=== PATIENT | female | born 1965 | race Caucasian/White ===

== ENCOUNTER 2019-04-29 11:37 | Observation (INO) | payer OTHER ==
[~2019-04-29 11:37] MED LIST: SEVOFLURANE 15 MIN
[2019-04-29 12:38] LABS: ADD MAN DIFF? NO
[2019-04-29] MEDS: LACTATED RINGER'S 1,000 ML IV (12:44)
[2019-04-29 12:45] LABS: BASOPHILS % 0.6 % (0.0-2.0); EOSINOPHILS # 0.2 10^3/ul (0.0-0.5); EOSINOPHILS % 3.6 % (0.0-7.0); HEMOGLOBIN 13.4 g/dl (12.0-16.0); LYMPHOCYTES # 2.1 10^3/ul (0.8-2.9); LYMPHOCYTES % 31.9 % (15.0-51.0); MEAN CORPUSCULAR HEMOGLOBIN 29.5 pg (29.0-33.0); MEAN CORPUSCULAR HGB CONC 33.5 g/dl (32.0-37.0); MEAN CORPUSCULAR VOLUME 87.9 fl (82.0-101.0); MEAN PLATELET VOLUME 9.3 fl (7.4-10.4); MONOCYTE # 0.6 10^3/ul (0.3-0.9); MONOCYTES % 8.4 % (0.0-11.0); NEUTROPHIL # 3.7 10^3/ul (1.6-7.5); NEUTROPHILS % 55.1 % (39.0-77.0); PLATELET COUNT 261 10^3/UL (140-415); RED BLOOD COUNT 4.55 10^6/ul (4.20-5.40); RED CELL DISTRIBUTION WIDTH 11.7 % (11.5-14.5)
[2019-04-29 12:45] LABS: WHITE BLOOD COUNT 6.7 10^3/ul (4.8-10.8)
[2019-04-29 13:02] LABS: ALANINE AMINOTRANSFERASE 21 IU/L (13-69); ALBUMIN 4.2 g/dl (3.3-4.9); ALBUMIN/GLOBULIN RATIO 1.23; ALKALINE PHOSPHATASE 87 IU/L (42-121); ANION GAP 6 (5-13); ASPARTATE AMINO TRANSFERASE 19 IU/L (15-46); BILIRUBIN,INDIRECT 0.4 mg/dl (0-1.1); BILIRUBIN,TOTAL 0.4 mg/dl (0.2-1.3); BLOOD UREA NITROGEN 8 mg/dl (7-20); CALCIUM 9.3 mg/dl (8.4-10.2); CARBON DIOXIDE 28 mmol/L (21-31); CHLORIDE 108 mmol/L (97-110); Estimated GFR > 60 mL/min (>60); GLUCOSE 79 mg/dl (70-220); POTASSIUM 4.1 mmol/L (3.5-5.1); SODIUM 142 mmol/L (135-144); TOTAL PROTEIN 7.6 g/dl (6.1-8.1)
[2019-04-29 13:04] LABS: CREATININE 0.34 mg/dl (0.44-1.00)
[2019-04-29 13:05] LABS: INR 0.94; PARTIAL THROMBOPLASTIN TIME 27.5 Sec (23.0-35.0); PROTIME 12.7 Sec (11.9-14.9)
[2019-04-29] MEDS ORDERED: MIDAZOLAM 1 MG/ML 2 ML INJ (14:52)
[2019-04-29] MEDS ORDERED: ROCURONIUM 50 MG INJ (15:00)
[2019-04-29] MEDS ORDERED: SUCCINYLCHOLINE CHLORIDE 100 MG/5 ML SYG IV (15:00)
[2019-04-29] MEDS ORDERED: DEXAMETHASONE 4 MG/ML 5 ML INJ (15:00)
[2019-04-29] MEDS ORDERED: PROPOFOL 20 ML (15:00)
[2019-04-29] MEDS ORDERED: LIDOCAINE 2% (SDV) 5 ML INJ (15:00)
[2019-04-29] MEDS ORDERED: CEFAZOLIN 1 GM INJ (15:00)
[2019-04-29] MEDS ORDERED: FAMOTIDINE 20 MG INJ (15:00)
[2019-04-29] MEDS ORDERED: ONDANSETRON 4 MG INJ (15:00)
[2019-04-29] MEDS: LIDOCAINE 1.5%/EPI MPF (SDV) 30 ML VIAL (15:53)
[2019-04-29] MEDS: BUPIVACAINE 0.5%/EPI (SDV) 30 ML INJ (15:53)
[2019-04-29] MEDS: GELATIN SIZE 100 SPONGE (15:54)
[2019-04-29] MEDS: THROMBIN 5000 UNIT VIAL ×2 (15:55→16:57)
[2019-04-29] MEDS ORDERED: GELATIN SIZE 100 SPONGE (16:15)
[2019-04-29] MEDS: POLYMYXIN/BACITRACIN 1L IRRIG (16:58)
[2019-04-29] MEDS: METHYLPREDNISOLONE ACET 80 MG/ML 1 ML (16:58)
[2019-04-29] MEDS ORDERED: GLYCOPYRROLATE 0.4 MG INJ (17:00)
[2019-04-29] MEDS ORDERED: NEOSTIGMINE 3 MG/3 ML SYRINGE (17:00)
[2019-04-29] MEDS ORDERED: ACETAMINOPHEN/CODEINE #3 TAB PO (17:30)
[2019-04-29] MEDS ORDERED: BISACODYL 10 MG SUPP PR (17:30)
[2019-04-29] MEDS ORDERED: NALOXONE (0.4 MG/ML) INJ IV (17:30)
[2019-04-29] MEDS: CITALOPRAM 20 MG TAB PO (17:30)
[2019-04-29] MEDS ORDERED: HYDROmorphONE 1 MG/5 ML IV SYRINGE IV ×6 (18:20→18:30)
[2019-04-29] MEDS: ONDANSETRON 4 MG INJ IV (18:21)
[2019-04-29] MEDS: CEFAZOLIN 1 GM/50 ML (PMX) 50 ML IVPB (18:21)
[2019-04-29] MEDS ORDERED: ONDANSETRON 4 MG INJ IV ×2 (18:30)
[2019-04-29] MEDS ORDERED: OXYCODONE/ACETAMINOPHEN (5/325) TAB PO (18:30)
[2019-04-29] MEDS ORDERED: PROCHLORPERAZINE 10 MG INJ IV (18:30)
[2019-04-29] MEDS ORDERED: DIPHENHYDRAMINE 50 MG INJ IV (18:30)
[2019-04-29] MEDS ORDERED: MEPERIDINE 25 MG INJ IV (18:30)
[2019-04-29] MEDS ORDERED: FENTAnyl 50 MCG/ML VIAL IV ×3 (18:30)
[2019-04-29] MEDS: HYDROmorphONE 1 MG/5 ML IV SYRINGE IV (18:48)
[2019-04-29] MEDS: HYDROCODONE/APAP (5/325) TAB PO (20:43)
[2019-04-29] MEDS: 1/2 NS + KCL 20 MEQ 1,000 ML IV (20:46)
[2019-04-29] MEDS ORDERED: GLUCOSAMINE HCL 500 MG PO (21:00)
[2019-04-29] MEDS: NORTRIPTYLINE 10 MG CAP PO (21:00)
[2019-04-29] MEDS: CELECOXIB 200 MG CAP PO (21:39)
[2019-04-29] MEDS: DOCUSATE SODIUM 100 MG CAP PO (21:39)
[2019-04-29] MEDS: GABAPENTIN 100 MG CAP PO (21:39)
[2019-04-29] MEDS: DICYCLOMINE 10 MG CAP PO (21:39)
[2019-04-29] MEDS: GABAPENTIN 300 MG CAP PO (21:39)
[2019-04-29] MEDS: METOPROLOL 25 MG TAB PO (21:40)
[2019-04-30] MEDS: morphine 2 MG INJ IV ×4 (00:25→13:52)
[2019-04-30] MEDS: CEFAZOLIN 1 GM/50 ML (PMX) 50 ML IVPB ×2 (00:25→08:54)
[2019-04-30] MEDS: PANTOPRAZOLE (EC) 40 MG TAB PO (05:25)
[2019-04-30] MEDS: 1/2 NS + KCL 20 MEQ 1,000 ML IV (05:29)
[2019-04-30] MEDS: CELECOXIB 200 MG CAP PO (08:52)
[2019-04-30] MEDS: CALCIUM CARBONATE 1.25 GM TAB PO (08:52)
[2019-04-30] MEDS: GABAPENTIN 300 MG CAP PO ×2 (08:52→12:18)
[2019-04-30] MEDS: HYDROCODONE/APAP (5/325) TAB PO (08:53)
[2019-04-30] MEDS: CITALOPRAM 20 MG TAB PO (08:53)
[2019-04-30] MEDS: DOCUSATE SODIUM 100 MG CAP PO (08:53)
[2019-04-30] MEDS: DICYCLOMINE 10 MG CAP PO ×2 (08:53→12:18)
[2019-04-30] MEDS: METOPROLOL 25 MG TAB PO (08:54)
[2019-04-30] MEDS: LACTATED RINGER'S 1,000 ML IV (11:38)
== END 2019-04-30 15:40 | disposition home or self-care (01) ==
LOC: REC 11:37 → MS1 19:05
DX: M48.061 Spinal stenosis, lumbar region without neurogenic claudication (principal); M51.26 Other intervertebral disc displacement, lumbar region
CPT/HCPCS: 63030; 72114; 80053; 85025; 85610; 85730; 97161; 99217